=== PATIENT | female | born 1985 | race Caucasian/White ===

== ENCOUNTER 2017-03-04 12:23 | Inpatient (IN) | payer BC ==
--- NOTE | 2017-03-04 13:06 | OBPROG ---
OBG Progress Note Assessment/Plan: Assessment: Plan: - Physical Exam General Appearance: WD/WN, alert, no apparent distress Respiratory: chest non-tender, lungs clear, normal breath sounds Cardiac/Chest: regular rate, rhythm Abdomen: normal bowel sounds Genitourinary: other (peeing without difficulty) Membranes: Intact Extremities: normal range of motion, Elizabeth's sign (negative bilaterally/ dtrs1+ bilaterally /no clonus) DTR- Lower Extremities: Knee (R): 1+, Knee (L): 1+ Skin: normal color, warm/dry Neuro/Psych: no motor/sensory deficits, alert, normal mood/affect, oriented x 3 ICD10 Worksheet Patient Problems: Problems 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
--- NOTE | 2017-03-04 13:09 | OBPROG ---
OBG Progress Note Assessment/Plan: Assessment:here to labor and delivery with elevated bp dtr1+ bilaterally no clonus denies PIH symptoms cat1 fhr contractions q2-3 minutes miniaml pain with them exam -/ballotable cephalic pih labs random urine protein and creatinine Plan:pih eval 03/04/17 13:06 Subjective: I feel tightening I do not have pain. 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
[2017-03-04 13:19] LABS: % IMMATURE GRANULYOCYTES 1.2 % (0.0-1.1); ABSOLUTE IMMATURE GRANULOCYTES 0.13 10^3/uL (0.00-0.10); ADD DIFF? NO; ADD MORPH? NO; ADD SCAN? NO; ATYPICAL LYMPHOCYTE FLAG 0 (0-99); FRAGMENT RBC FLAG 0 (0-99); HEMOGLOBIN 12.1 g/dL (12.6-16.3); LEFT SHIFT FLG 10 (0-99); LIPEMIA HEMOLYSIS FLAG 90 (0-99); MEAN CELL HEMOGLOBIN 31.8 pg (27.9-34.1); MEAN CELL HEMOGLOBIN CONCENTR. 35.6 g/dL (32.4-36.7); MEAN CELL VOLUME 89.2 fL (81.5-99.8); MEAN PLATELET VOLUME 11.1 fL (8.7-11.7); PLATELET CLUMPS FLAG 0 (0-99); PLATELET COUNT 183 10^3/uL (150-400); RED BLOOD CELL COUNT 3.81 10^6/uL (4.18-5.33); RED CELL DISTRIBUTION WIDTH 13.2 % (11.5-15.2)
--- NOTE | 2017-03-04 13:37 | GHP ---
[f rep st] HISTORY AND PHYSICAL HISTORY OF PRESENT ILLNESS: The patient is a 31-year-old, 2, para 1, with an EDC of 03/18/2017 which makes her 38 weeks today. The patient comes over from the office with elevated blood pressures. Denies PIH symptoms. Feeling positive movement. Denies regular contractions in the office. When placed on the monitor here in Labor and Delivery, katy every 2-3 minutes. Exam is 2 cm, 75% effaced, ballotable, cephalic, bag of water is intact. States feeling positive movement. Denies bloody show. Denies leaking of fluid. MEDICAL HISTORY: No other elevated blood pressures. Other than today. SURGICAL HISTORY: Benign. GYNECOLOGICAL HISTORY: Previous IUD and a colpo which was negative. FAMILY HISTORY: Noncontributory. PREVIOUS HISTORY: In 01/2014 a male who was 8 pounds 7 ounces, 39 weeks, 11 hours of labor, vaginal delivery. OTHER GYNECOLOGICAL HISTORY: Was 13 years old with menarche, interval 26-28 days. SOCIAL HISTORY: Patient is . Occasional alcohol when not . Denies smoking. LABS: The patient is A negative. Antibody negative. RPR is nonreactive. Rubella is immune. Hepatitis is negative. HIV is negative. TSH was 2.440 on first lab assessment. PIH labs in 07/2016 were negative. Gonorrhea and chlamydia were negative. AFP was negative. Verifi was negative. 1-hour GTT was 78. The patient had RhoGAM on 12/30/2016. Patient is GBS positive. PHYSICAL ASSESSMENT: GENERAL: Patient is awake, alert, oriented x3. LUNGS: Clear bilaterally. Bowel sounds are positive in all 4 quadrants. Patient is katy every 2-3 minutes, although feeling tightening. Denies pain. Exam 2 cm, 75% effaced, ballotable, posterior, cephalic, soft. EXTREMITIES: DTRs were 1+. No clonus was noted. Homans' sign was negative bilaterally. Patient denied PIH symptoms. PLAN OF CARE: PIH labs, monitor, serial blood pressures. Consult with Dr. Coreas on plan of care once all lab work has returned. We will also add a random protein and creatinine urine to see patient's protein output with void. The patient is not allergic to any medications. Is only taking vitamins as well as LULY. /[id number]/MODL MTDD
[2017-03-04 13:47] LABS: ALANINE AMINOTRANSFERASE 26 IU/L (9-52); ASPARTATE AMINOTRANSFERASE 23 IU/L (14-46); BILIRUBIN,TOTAL 0.5 mg/dL (0.1-1.4); BILIRUBIN-CONJUGATED 0.3 mg/dL (0.0-0.5); BILIRUBIN-UNCONJUGATED 0.2 mg/dL (0.0-1.1); CREATININE 0.5 mg/dL (0.6-1.0); GLOMERULAR FILTRATION RATE > 60; LACTATE DEHYDROGENASE 674 IU/L (313-618); URIC ACID 5.1 mg/dL (2.5-6.8)
[2017-03-04] MEDS ORDERED: OXYTOCIN/RINGERS LACTATE 1,000 ML IV PRN (17:02)
[2017-03-04] MEDS ORDERED: AMPICILLIN SODIUM 2 GM in NS 100 ML IV ONE (17:02)
[2017-03-04] MEDS ORDERED: LIDOCAINE 1% 30 ML SDV SC PRN (17:02)
[2017-03-04] MEDS ORDERED: EPSOM SALT 454 GM TP PRN (17:02)
[2017-03-04] MEDS ORDERED: OLIVE OIL 118 ML BTL MISC PRN (17:02)
[2017-03-04] MEDS ORDERED: LR 1,000 ML IV PRN (17:02)
[2017-03-04] MEDS ORDERED: TERBUTALINE SULFATE 1 MG/ML VIAL IV PRN (17:02)
--- NOTE | 2017-03-04 17:13 | OBPROG ---
OBG Progress Note Assessment/Plan: Assessment:several elevated bp dtr1+ bilaterally no clonus denies PIH symptoms cat1 fhr contractions q2-3 minutes minimal pain pitocin per protocol elevated protein in urine exam -/ballotable cephalic pih labs wnl consult with dr. harris on poc IOL for gestational hypertension Plan:iol for gestational hypertension 03/04/17 13:06 03/04/17 17:11 Subjective: Regular diet Objective: 03/04/17 13:10 03/04/17 13:10 Uric Acid 5.1 mg/dL (2.5-6.8) 03/04/17 13:10 Total Bilirubin 0.5 mg/dL (0.1-1.4) 03/04/17 13:10 Conjugated Bilirubin 0.3 mg/dL (0.0-0.5) 03/04/17 13:10 Unconjugated Bilirubin 0.2 mg/dL (0.0-1.1) 03/04/17 13:10 AST 23 IU/L (14-46) 03/04/17 13:10 ALT 26 IU/L (9-52) 03/04/17 13:10 Lactate Dehydrogenase 674 IU/L (313-618) H 03/04/17 13:10 FHR (bpm): 135 FHR Pattern Variability: Moderate FHR Category: 1 ICD10 Worksheet Patient Problems: Problems 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
[2017-03-04] MEDS ORDERED: OXYTOCIN/RINGERS LACTATE 500 ML IV SCH (17:30)
[2017-03-04] MEDS ORDERED: AMMONIA AROMATIC 1 EACH AMP IH ONE (20:06)
[2017-03-04] MEDS ORDERED: OXYTOCIN 10 UNIT/ML VIAL ONE (20:07)
[2017-03-04] MEDS ORDERED: MISOPROSTOL 200 MCG TAB ONE (20:07)
[2017-03-04] MEDS: AMPICILLIN SODIUM 1 GM in NS 100 ML IV SCH (22:00)
--- NOTE | 2017-03-04 22:17 | OBPROG ---
OBG Progress Note Assessment/Plan: denies PIH symptoms cat1 fhr contractions q3-4 minutes minimal pain pitocin at 16mu /hour elevated protein in urine exam /-2 cephalic pih labs wnl arom clear fluid feeling the contractions now menstrual cramps desired nonmedicated natural bp wnl at this time Plan:continue pitocin, ambulate as desired, 03/04/17 13:06 03/04/17 17:11 03/04/17 22:14 Subjective: doing well Objective: 03/04/17 13:10 03/04/17 13:10 Patient ABO/Rh A NEGATIVE 03/04/17 18:15 Uric Acid 5.1 mg/dL (2.5-6.8) 03/04/17 13:10 Total Bilirubin 0.5 mg/dL (0.1-1.4) 03/04/17 13:10 Conjugated Bilirubin 0.3 mg/dL (0.0-0.5) 03/04/17 13:10 Unconjugated Bilirubin 0.2 mg/dL (0.0-1.1) 03/04/17 13:10 AST 23 IU/L (14-46) 03/04/17 13:10 ALT 26 IU/L (9-52) 03/04/17 13:10 Lactate Dehydrogenase 674 IU/L (313-618) H 03/04/17 13:10 - SVE Dilation (cm): 3 Effacement (%): 75 Station: -2 Current Contraction Pattern: Regular FHR (bpm): 125 FHR Pattern Variability: Moderate FHR Category: 1 Membranes: AROM Amniotic Fluid Color: Blood Tinged ICD10 Worksheet Patient Problems: Problems 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
[2017-03-05] MEDS ORDERED: ONDANSETRON 4 MG/2 ML VIAL IVP ONE (01:13)
--- NOTE | 2017-03-05 01:55 | OBPROG ---
OBG Progress Note Assessment/Plan: denies PIH symptoms cat1 fhr contractions q3-4 minutes minimal pain pitocin from 20mu to 15mu contractionsq1-2 minutes elevated protein in urine exam /-1 cephalic/ great change in cervix pih labs wnl arom clear fluid desires nonmedicated natural bp wnl at this time Plan:continue pitocin, encourgaed to change positions q30 minutes 03/04/17 13:06 03/04/17 17:11 03/04/17 22:14 03/05/17 01:52 Subjective: Coping well through the contractions Objective: 03/04/17 13:10 03/04/17 13:10 Patient ABO/Rh A NEGATIVE 03/04/17 18:15 Uric Acid 5.1 mg/dL (2.5-6.8) 03/04/17 13:10 Total Bilirubin 0.5 mg/dL (0.1-1.4) 03/04/17 13:10 Conjugated Bilirubin 0.3 mg/dL (0.0-0.5) 03/04/17 13:10 Unconjugated Bilirubin 0.2 mg/dL (0.0-1.1) 03/04/17 13:10 AST 23 IU/L (14-46) 03/04/17 13:10 ALT 26 IU/L (9-52) 03/04/17 13:10 Lactate Dehydrogenase 674 IU/L (313-618) H 03/04/17 13:10 Current Contraction Pattern: Regular FHR (bpm): 135 FHR Pattern Variability: Moderate FHR Category: 1 Membranes: SROM Amniotic Fluid Color: Clear ICD10 Worksheet Patient Problems: Problems 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
[2017-03-05] MEDS: AMPICILLIN SODIUM 1 GM in NS 100 ML IV SCH ×5 (01:56→17:29)
--- NOTE | 2017-03-05 03:40 | OBPROC ---
- Labor and Delivery Onset of Contractions Date: 03/04/17 Onset of Contractions Time: 18:00 Onset of Contractions Type: Induced Rupture of Membranes Date: 03/05/17 Rupture of Membranes Time: 22:03 Rupture of Membranes Type: Artificial Amniotic Fluid Color: Clear Dilation Complete Time: 02:34 Delivery Type: Spontaneous Placenta Delivery Date: 03/05/17 Placenta Delivery Time: 03:21 Episiotomy/Laceration: 2nd Degree Repair: 3-0, Vicryl EBL: 300 Complications: Shoulder Dystocia (1 minute on the perineum.) - Medications Labor Augmentation/Induction Meds Used: Pitocin Labor Augmentation/Induction Indication: Other (Specify) (mild PIH) Anesthesia: Local (Specify) - [place] Info 3 Delivery Date: 03/05/17 Delivery Time: 03:06 Sex of : Female Score (1 Min): 8 Score (5 Min): 9
[2017-03-05] MEDS ORDERED: ACETAMINOPHEN 325 MG TAB PO PRN (03:41)
[2017-03-05] MEDS ORDERED: HYDROCODONE/APAP 5/325 TAB PO PRN (03:41)
[2017-03-05] MEDS ORDERED: HYDROCORTISONE 0.5% CREAM TP PRN (03:41)
[2017-03-05] MEDS ORDERED: SIMETHICONE 80 MG TAB CHEW PO PRN (03:41)
[2017-03-05] MEDS: IBUPROFEN 600 MG TAB PO PRN ×3 (06:09→18:01)
[2017-03-05] MEDS: DOCUSATE SODIUM 100 MG CAP PO PRN ×2 (08:44→20:11)
[2017-03-05] MEDS: IRON POLYSAC/IRON HEME 28 MG TAB PO SCH (08:44)
[2017-03-05 09:03] VITALS: O2SAT 96
--- NOTE | 2017-03-05 12:20 | SOAPPROG ---
SOAP Progress Note Assessment/Plan: Assessment: ppd# 1 s/p breast feeding gestational hypertension - blood pressures improved Plan: routine post care 03/05/17 12:17 Subjective: patient is doing well. pain is well controlled. normal lochia. denies headaches and changes in vision. voiding without difficulty. no issues. Objective: Vital Signs Temp Pulse Resp BP Pulse Ox 36.9 C 84 15 112/67 96 03/05/17 08:00 03/05/17 08:00 03/05/17 08:00 03/05/17 08:00 03/05/17 08:00 Laboratory Results 03/04/17 13:10 03/04/17 13:10 03/04/17 03/05/17 03/06/17 05:59 05:59 05:59 Output Total 250 Balance -250 Physical Exam - Physical Exam General Appearance: WD/WN, alert, no apparent distress Neck: non-tender Respiratory: chest non-tender, lungs clear, normal breath sounds Cardiac/Chest: normal peripheral pulses, regular rate, rhythm Abdomen: normal bowel sounds, non-tender, soft, other (fundus firm and non tender) Skin: normal color, warm/dry Extremities: normal range of motion, non-tender, normal inspection, normal capillary refill Neuro/Psych: no motor/sensory deficits, alert, normal mood/affect, oriented x 3 ICD10 Worksheet Patient Problems: Problems 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
[2017-03-05 20:05] VITALS: RESP 16
[2017-03-06] MEDS: IBUPROFEN 600 MG TAB PO PRN ×3 (00:18→12:16)
[2017-03-06] MEDS: DOCUSATE SODIUM 100 MG CAP PO PRN (05:54)
[2017-03-06] MEDS: IRON POLYSAC/IRON HEME 28 MG TAB PO SCH (09:03)
[2017-03-06 09:07] VITALS: BP 125/73; PULSE 64; TEMP 97
--- NOTE | 2017-03-06 11:18 | OBPROG ---
OBG Progress Note Assessment/Plan: Assessment: 31 y/o PPD #2 s/p IOL secondary to mild pre-eclampsia at 38 weeks. Plan: D/c home today with Ibuprofen and Bifera. RTO this week for a BP check and I gave strict precautions to call with symptoms. 03/06/17 11:17 Subjective: Pt is doing well this am. She has min cramping controlled with Po Ibuprofen. No n/v, chrissy reg diet and min lochia. Breast feeding is going well and baby is doing well. She denies LACKEY, scotomata, blurred vision or other complaints. They are ready to d/c home. Objective: 03/06/17 05:50 03/04/17 13:10 Patient ABO/Rh A NEGATIVE 03/05/17 03:06 Uric Acid 5.1 mg/dL (2.5-6.8) 03/04/17 13:10 Total Bilirubin 0.5 mg/dL (0.1-1.4) 03/04/17 13:10 Conjugated Bilirubin 0.3 mg/dL (0.0-0.5) 03/04/17 13:10 Unconjugated Bilirubin 0.2 mg/dL (0.0-1.1) 03/04/17 13:10 AST 23 IU/L (14-46) 03/04/17 13:10 ALT 26 IU/L (9-52) 03/04/17 13:10 Lactate Dehydrogenase 674 IU/L (313-618) H 03/04/17 13:10 Temp Pulse Resp BP Pulse Ox 36.1 C 64 16 125/73 H 96 03/06/17 08:00 03/06/17 08:00 03/05/17 20:04 03/06/17 08:00 03/05/17 20:04 Uterine Position/Fundal Height: Umbilicus -2 Uterine Tone: Firm - Physical Exam General Appearance: WD/WN, alert, no apparent distress Neck: non-tender, full range of motion, supple Respiratory: chest non-tender, lungs clear, normal breath sounds Cardiac/Chest: regular rate, rhythm Abdomen: normal bowel sounds Extremities: swelling (tr), Elizabeth's sign (neg) ICD10 Worksheet Patient Problems: Problems 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
== END 2017-03-06 13:15 | disposition home or self-care (01) | DRG 775 ==
LOC: FLD 12:23 → OBSVTOIN 12:23 → FOB 03-05 05:23
PROVIDERS: ADMIT Advanced Practice Midwife; ATTEND Advanced Practice Midwife
PROC: 10907ZC Drainage of Amniotic Fluid, Therapeutic from Products of Conception, Via Natural or Artificial Opening (ICD-10-PCS; principal; 2017-03-04)
PROC: 0KQM0ZZ Repair Perineum Muscle, Open Approach (ICD-10-PCS; principal; 2017-03-04)
PROC: 10E0XZZ Delivery of Products of Conception, External Approach (ICD-10-PCS; principal; 2017-03-04)
PROC: 3E033VJ Introduction of Other Hormone into Peripheral Vein, Percutaneous Approach (ICD-10-PCS; principal; 2017-03-04)
DX: O13.4 Gestational [pregnancy-induced] hypertension without significant proteinuria, complicating childbirth (principal); Z37.0 Single live birth; Z3A.38 38 weeks gestation of pregnancy; O99.824 Streptococcus B carrier state complicating childbirth; O70.1 Second degree perineal laceration during delivery; O66.0 Obstructed labor due to shoulder dystocia
CPT/HCPCS: J0290; J2590; J3105

== ENCOUNTER 2017-03-11 12:05 | Observation (INO) | payer BC ==
[2017-03-11 12:48] LABS: % IMMATURE GRANULYOCYTES 1.1 % (0.0-1.1); ABSOLUTE IMMATURE GRANULOCYTES 0.07 10^3/uL (0.00-0.10); ADD DIFF? NO; ADD MORPH? NO; ADD SCAN? NO; ATYPICAL LYMPHOCYTE FLAG 10 (0-99); FRAGMENT RBC FLAG 0 (0-99); HEMATOCRIT 33.9 % (38.0-47.0); HEMOGLOBIN 11.6 g/dL (12.6-16.3); LEFT SHIFT FLG 10 (0-99); LIPEMIA HEMOLYSIS FLAG 90 (0-99); MEAN CELL HEMOGLOBIN 31.6 pg (27.9-34.1); MEAN CELL HEMOGLOBIN CONCENTR. 34.2 g/dL (32.4-36.7); MEAN CELL VOLUME 92.4 fL (81.5-99.8); MEAN PLATELET VOLUME 10.4 fL (8.7-11.7); PLATELET CLUMPS FLAG 0 (0-99); PLATELET COUNT 227 10^3/uL (150-400); RED BLOOD CELL COUNT 3.67 10^6/uL (4.18-5.33); RED CELL DISTRIBUTION WIDTH 12.6 % (11.5-15.2)
[2017-03-11 13:12] LABS: ALANINE AMINOTRANSFERASE 70 IU/L (9-52); ASPARTATE AMINOTRANSFERASE 32 IU/L (14-46); BILIRUBIN,TOTAL 0.5 mg/dL (0.1-1.4); BILIRUBIN-CONJUGATED 0.3 mg/dL (0.0-0.5); BILIRUBIN-UNCONJUGATED 0.2 mg/dL (0.0-1.1); CREATININE 0.7 mg/dL (0.6-1.0); GLOMERULAR FILTRATION RATE > 60; LACTATE DEHYDROGENASE 1108 IU/L (313-618); URIC ACID 7.4 mg/dL (2.5-6.8)
[2017-03-11] MEDS ORDERED: CALCIUM GLUC 10% 1 GM/10 ML VIAL IVP PRN (13:57)
[2017-03-11] MEDS ORDERED: MAGNESIUM SULF 4 GM/WATER 100 ML IV ONE (13:57)
[2017-03-11] MEDS: Mag Sulf 500 ML IV SCH (14:12)
--- NOTE | 2017-03-11 17:46 | GHP ---
[f rep st] PREOP HISTORY AND PHYSICAL DATE OF ADMISSION: 03/11/2017 ADMITTING DIAGNOSIS: day 6 with preeclampsia. HISTORY OF PRESENT ILLNESS: The patient is a 31-year-old 2, now para 2-0-0-2, who is 6 days status post a spontaneous vaginal delivery of a viable female, in which she had an induction of lab or secondary to gestational hypertension. The patient presented to the office today for blood press ure check, and is asymptomatic. She denies headaches, scotomata, upper quadrant pain. She has had some mild increases in edema, but overall feels well. Blood pressures in the office were 146/88 and 150/100, x2, and so she was sent to labor and delivery for further evaluation. Her blood pressures here have ranged in the 140s to 160s over 80s to low 100s. She had PIH labs drawn, and they were s ignificant for an elevated uric acid of 7.4, ALT of 70, LDH of 1108. Other labs were stable and dec ision was made to admit for preeclampsia, magnesium sulfate administration, and careful m onitoring. The patient was initially seen at 38 weeks on March 04, and during that visit she had el evated blood pressures, 150/82, and she was sent to labor and delivery for evaluation. In labor and delivery, her blood pressures remained elevated in the 140s to 150s over high 80s. PIH labs at sherin t time were negative. She had an elevated P/C ratio calculated in the 500s, and the decision was ma jeff to proceed with induction of labor secondary to gestational hypertension/mild preeclampsia. The patient underwent induction of labor. She was started on Pitocin. She had artificial rupture of me mbranes. She had an epidural and she delivered a viable female with Apgars of 8 and 9 at 3 a.m. on March 05. The patient's course was uncomplicated. Her blood pressures normalized. They ranged from 112 to 140s over 60s to 80s at the highest. She was asymptomatic. She did well and radha borjas was discharged home on day 2. Today, she presented for her routine blood pressure che k. PAST OBSTETRICAL HISTORY: In January 2014, she delivered a viable male, 8 pounds 7 ounces, without co mplication and no evidence of preeclampsia in that . This is her second . PAST GYNECOLOGICAL HISTORY: She has a normal menstrual history. She was using Mirena in between pr egnancies. She had a certain last menstrual period of 06/10/2016. She had 1 history of abnormal Pa p. She had a colposcopy which was negative. No positive Paps after that. She has used an IUD for control. PAST MEDICAL HISTORY: She has no significant past medical history. PAST SURGICAL HISTORY: No significant past surgical history. ALLERGIES: She has no known drug allergies. MEDICATIONS: Include vitamins and DHA. LABORATORY DATA: She is A positive, antibody negative. Other labs are not contributory at this poi nt. SOCIAL HISTORY: She is . She lives with her , Fatuma, and her son. 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 She denies tobacco, had just social alcohol prior to , and no drug use. FAMILY HISTORY: Her father had heart disease and chronic hypertension. Her son has asthma. Her mo ther has hypothyroidism. Her brother had gallbladder disease. Paternal grandmother had rheumatoid arthritis. Maternal grandmother had breast cancer at age 60. That is her only significant family h istory. REVIEW OF SYSTEMS: Today is negative for any constitutional symptoms. Specifically, negative for h eadaches, blurred vision, scotomata, or abdominal pain. She has no fever, chills. No other signifi cant in a 10-point review of systems. She is breast-feeding her 6-day-old baby. OBJECTIVE: VITAL SIGNS: Currently, blood pressures have improved to the 130s over 70s after admini stration of magnesium sulfate. GENERAL: She is a well-developed, well-nourished, female, in no acu te distress. LUNGS: Clear to auscultation bilaterally. HEART: Regular rate and rhythm. No murmu rs. ABDOMEN: Soft, nontender, nondistended. Fundal height is at U -3. She has normal bowel sound s. PELVIC: Deferred. EXTREMITIES: She has trace edema. DTRs are 2+/2+. She has no clonus. LABORATORY DATA: Today, white count is 6.6, hemoglobin 11.6, hematocrit 33.9, platelets of 227. BU N 14, creatinine 0.7. Uric acid 7.4. AST 32, ALT 70, LDH 1108. ASSESSMENT AND PLAN: 31-year-old, who is 6 days status post spontaneous vaginal delivery , induction of labor at 38 weeks secondary to gestational hypertension, now with preeclam psia. The patient is admitted for magnesium sulfate administration and careful monitoring of blood pressures. /[id number]/MODL
[2017-03-11] MEDS ORDERED: LR 1,000 ML IV SCH (19:00)
[2017-03-11] MEDS ORDERED: IBUPROFEN 600 MG TAB PO PRN (21:46)
[2017-03-11] MEDS ORDERED: CALCIUM CARBONATE 500 MG CHEWABLE TAB PO PRN (21:47)
[2017-03-11] MEDS ORDERED: diphenhydrAMINE 25 MG CAP PO PRN (21:47)
[2017-03-11] MEDS ORDERED: ACETAMINOPHEN 500 MG TAB PO PRN (21:47)
[2017-03-12] MEDS: Mag Sulf 500 ML IV SCH (00:02)
[2017-03-12 07:15] LABS: ABSOLUTE IMMATURE GRANULOCYTES 0.07 10^3/uL (0.00-0.10); ADD DIFF? NO; ADD MORPH? NO; ADD SCAN? NO; ATYPICAL LYMPHOCYTE FLAG 10 (0-99); FRAGMENT RBC FLAG 0 (0-99); HEMATOCRIT 34.5 % (38.0-47.0); HEMOGLOBIN 11.9 g/dL (12.6-16.3); LEFT SHIFT FLG 0 (0-99); LIPEMIA HEMOLYSIS FLAG 90 (0-99); MEAN CELL HEMOGLOBIN 31.7 pg (27.9-34.1); MEAN CELL HEMOGLOBIN CONCENTR. 34.5 g/dL (32.4-36.7); MEAN PLATELET VOLUME 10.2 fL (8.7-11.7); PLATELET CLUMPS FLAG 0 (0-99); PLATELET COUNT 260 10^3/uL (150-400); RED BLOOD CELL COUNT 3.75 10^6/uL (4.18-5.33); RED CELL DISTRIBUTION WIDTH 12.7 % (11.5-15.2)
[2017-03-12 07:21] LABS: ALANINE AMINOTRANSFERASE 63 IU/L (9-52); ASPARTATE AMINOTRANSFERASE 28 IU/L (14-46); CREATININE 0.6 mg/dL (0.6-1.0); GLOMERULAR FILTRATION RATE > 60; LACTATE DEHYDROGENASE 980 IU/L (313-618); URIC ACID 6.9 mg/dL (2.5-6.8)
[2017-03-12 08:07] VITALS: O2SAT 96
[2017-03-12] MEDS ORDERED: DOCUSATE SODIUM 100 MG CAP PO SCH (09:00)
--- NOTE | 2017-03-12 10:10 | SOAPPROG ---
SOAP Progress Note Assessment/Plan: Assessment: HD 2 s/p readmit at 8d PP with post op preeclampsia on Mg 2 gm/hr elevated ALT - trending down sleeping now Plan: 24 hours of Magnesium and likely D/C this afternoon 03/12/17 10:04 Subjective: pt sleeping now. Not disturbed. has been BF well. 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
[2017-03-12 11:07] VITALS: RESP 16
--- NOTE | 2017-03-12 13:22 | SOAPPROG ---
SOAP Progress Note Assessment/Plan: Assessment: HD 2 s/p readmit at 8d PP with post op preeclampsia on Mg 2 gm/hr elevated ALT - trending down Doing fine, B/P good on Magnesium Plan: 24 hours of Magnesium and likely D/C this afternoon Disc with pt/husb stopping Mg at 2p, will watch B/P for short time afterwards and then plan to d./c home. RTC 1 wk 03/12/17 10:04 03/12/17 13:19 Subjective: Pt doing fine. BF baby well. No LACKEY or N/V or visual changes. Given info that labs were trending in good direction. Reassured pt and disc signs to watch for. bld is light. Objective: Vital Signs Temp Pulse Resp BP Pulse Ox 36.7 C 70 16 130/81 H 96 03/12/17 08:06 03/12/17 11:06 03/12/17 11:06 03/12/17 11:06 03/12/17 08:06 Laboratory Results 03/12/17 06:00 03/12/17 06:00 03/11/17 03/12/17 03/13/17 05:59 05:59 05:59 Intake Total 3387 400 Output Total 4877 0281 Balance -1438 -1928 Physical Exam - Physical Exam General Appearance: WD/WN Abdomen: non-tender, soft, other (FF at umb -1) Pelvic Exam: vaginal bleeding (normal lochia) Extremities: non-tender, pedal edema (minimal) Neuro/Psych: normal mood/affect ICD10 Worksheet Patient Problems: Problems Problem Status Onset Preeclampsia in period Acute
[2017-03-12 15:09] VITALS: BP 132/87; PULSE 71; TEMP 97.9
== END 2017-03-12 13:00 | disposition home or self-care (01) ==
LOC: FLD 12:05
PROVIDERS: ADMIT Obstetrics & Gynecology; ATTEND Obstetrics & Gynecology
DX: O14.05 Mild to moderate pre-eclampsia, complicating the puerperium (principal)
CPT/HCPCS: G0378 ×2; J0610; J3475